=== PATIENT | male | born 1955 | race Caucasian/White ===

== ENCOUNTER 2016-07-29 14:17 | Observation (INO) | payer OTHER ==
[~2016-07-29] VITALS: Ht 175.3 cm; Wt 72.0 kg
[2016-07-29] VITALS (7 sets, daily range): BP systolic 146–161; BP diastolic 70–85; PULSE 64–74; RESP 16–20; TEMP 97.3–97.8; O2SAT 96–98
[2016-07-29] MEDS: SODIUM CHLORIDE 0.9% FLUSH 10 ML FLUSH IV FLUSH SCH (08:00)
[~2016-07-29 14:17] MED LIST: ALBU17I INH; ATEN1TAB75 PO; METH5SOL3 PO; XANA1TAB6 PO; ZITH500T PO
--- NOTE | 2016-07-29 14:42 | PD ---
Physical Exam Date Seen by Provider: July 29, 2016 Time Seen by Provider: 14:40 Narrative Pt states he has been having abdominal pain for 1 month. He was sent to GI and is scheduled for colonoscopy in 3 weeks. Pain is fluctuating and epigastric and cramping. Mild nausea, no vomiting. Pt denies any ETOH. VSS. Awaiting. Data Data Last Documented VS Vital Signs Date Time Temp Pulse Resp B/P Pulse Ox O2 Delivery O2 Flow Rate FiO2 07/29/16 14:19 97.3 64 20 146/82 98 Room Air [facility] Supervised Visit with MAKI: Angella Coleman July 29, 2016 14:42
[2016-07-29] MEDS ORDERED: CLON.5 PO (15:42)
[2016-07-29] MEDS ORDERED: ATEN50TA PO (15:42)
[2016-07-29] MEDS ORDERED: HYDR-2374 PO (15:42)
[2016-07-29] MEDS ORDERED: CITA20TA4 PO (15:42)
[2016-07-29] MEDS ORDERED: ONDANSETRON HCL 4 MG/2 ML VIAL IV PUSH ONE (16:00)
[2016-07-29] MEDS ORDERED: MORPHINE SULFATE 4 MG/ML INJ IV PUSH ONE (16:00)
[2016-07-29 16:17] LABS: AUTOMATED NEUTROPHIL # 4.2 TH/MM3 (1.8-7.7); BASOPHIL # 0.1 TH/MM3 (0-0.2); EOSINOPHIL # 0.3 TH/MM3 (0-0.4); EOSINOPHIL % 3.7 % (0.0-4.0); HEMATOCRIT 39.6 % (39.0-51.0); HEMO FLAGS DIFF FINAL; LYMPH % 28.9 % (9.0-44.0); LYMPHOCYTE # 2.1 TH/MM3 (1.0-4.8); MEAN CELL VOLUME 90.8 FL (80.0-100.0); MEAN CORPUSCULAR HEMOGLOBIN 31.5 PG (27.0-34.0); MEAN CORPUSCULAR HGB CONC 34.7 % (32.0-36.0); MONO % 8.4 % (0.0-8.0); PLATELET COUNT 237 TH/MM3 (150-450); RED BLOOD COUNT 4.36 MIL/MM3 (4.50-5.90); RED CELL DISTRIBUTION WIDTH 12.3 % (11.6-17.2); WHITE BLOOD COUNT 7.2 TH/MM3 (4.0-11.0)
[2016-07-29 16:19] LABS: BLOOD, URINE NEG (NEG); GLUCOSE,URINE NEG (NEG); KETONE, URINE NEG (NEG); NITRITE,URINE NEG (NEG); PH, URINE 6.5 (5.0-8.5); URINE COLOR LIGHT-YELLOW (YELLW/STRAW)
[2016-07-29 16:27] LABS: COMMENT (UR) CULT NOT INDICATED; CULTURE IF INDICATED CULT NOT INDICATED
[2016-07-29 16:28] LABS: INTERNATIONAL NORMALIZED RATIO 0.9 RATIO; PROTHROMBIN TIME - PATIENT 10.3 SEC (9.8-11.6)
[2016-07-29 16:38] LABS: ANION GAP 9 MEQ/L (5-15); AST (GOT) 16 U/L (15-37); BICARBONATE 30.2 MEQ/L (21.0-32.0); BLOOD UREA NITROGEN 11 MG/DL (7-18); CHLORIDE 97 MEQ/L (98-107); GLOMERULAR FILTRATION RATE 70 ML/MIN (>89); MAGNESIUM 2.1 MG/DL (1.5-2.5); POTASSIUM 3.7 MEQ/L (3.5-5.1); SODIUM (NA) 136 MEQ/L (136-145)
[2016-07-29 16:49] LABS: ALKALINE PHOSPHATASE 100 U/L (45-117); ALT (GPT) 19 U/L (12-78); TOTAL BILIRUBIN ADULT 0.2 MG/DL (0.2-1.0)
[2016-07-29 16:51] LABS: CREATINE KINASE 57 U/L (39-308)
--- NOTE | 2016-07-29 17:13 | PD ---
HPI Chief Complaint: Abdominal Pain Time Seen by Provider: 17:09 Travel History International Travel<30 days: No Contact w/Intl Traveler<30days: No Traveled to known affect area: No History of Present Illness HPI 61-year-old male that presents to the ED for evaluation of abdominal pain for about 1 month now. Per patient abdominal pain is diffuse. Per patient has a chronic history of smoking as well as hypertension. No diabetes. She states that he follow with his doctor and she sent him to a GI specialist wants to the colonoscopy. She is not scheduled to have the colonoscopy until 3 weeks from now. Per patient he came here because the pain is getting severe. Per patient he has a history of chronic back possible which she takes Lortab. Per patient his been having to take more of his medication to help with the belly pain is nothing else seems to be working. He denies any new nausea or vomiting. No bowel movement issues. He does state that he has no urinary issues. No fevers chills or sweats. Pain per patient comes and goes. Nothing seems to make it better or worse. He denies any surgeries to his abdomen. No allergies to medication. He states that occasionally he gets chest pains and shortness of breath but not today. Has not go back to his PCP as of yet. Patient did follow with GI. Pain per patient is 6 out of 10. PFSH Past Medical History Anxiety: Yes Heart Rhythm Problems: No Cardiac Catheterization: No Cardiovascular Problems: Yes High Cholesterol: No Congestive Heart Failure: No Diabetes: No Hypertension: Yes Musculoskeletal: Yes (chronic back pain) Myocardial Infarction: No Sleep Apnea: Yes (CPAP AT NIGHT) Past Surgical History Coronary Artery Bypass Graft: No Other Surgery: Yes (VASTECTOMY) Family History Family Myocardial Infarction: Yes Social History Alcohol Use: No Tobacco Use: Yes (03/22 PPD) Substance Use: No Allergies-Medications (Allergen,Severity, Reaction): Coded Allergies: No Known Allergies (Verified , 07/29/16) Reported Meds & Prescriptions Reported Meds & Active Scripts Active Bentyl (Dicyclomine HCl) 20 Mg Tab 20 Mg PO TID Reported Klonopin (Clonazepam) 0.5 Mg Tab 0.5 Mg PO QID Hydrocodone-Acetaminophen 10-300 Tab 1 Tab PO Q6H PRN Citalopram (Citalopram Hydrobromide) 20 Mg Tab 20 Mg PO DAILY Atenolol 50 Mg Tab 50 Mg PO DAILY Review of Systems Except as stated in HPI: all other systems reviewed are Neg Physical Exam Narrative GENERAL: SKIN: Warm and dry. HEAD: Atraumatic. Normocephalic. EYES: Pupils equal and round. No scleral icterus. No injection or drainage. ENT: No nasal bleeding or discharge. Mucous membranes pink and moist. Tongue is midline. No uvula deviation. NECK: Trachea midline. No JVD. CARDIOVASCULAR: Regular rate and rhythm. No murmurs, S3, S4. RESPIRATORY: No accessory muscle use. Clear to auscultation. Breath sounds equal bilaterally. GASTROINTESTINAL: Abdomen soft, non-tender with no guarding. Tender to palpation on the epigastric area, nondistended. Hepatic and splenic margins not palpable. MUSCULOSKELETAL: Extremities without clubbing, cyanosis, or edema. No obvious deformities. Full range of motion of the upper and lower extremities bilaterally. 2+ pulses bilaterally. NEUROLOGICAL: Awake and alert. No obvious cranial nerve deficits. Motor grossly within normal limits. Five out of 5 muscle strength in the arms and legs. Normal speech. PSYCHIATRIC: Appropriate mood and affect; insight and judgment normal. Data Data Last Documented VS Vital Signs Date Time Temp Pulse Resp B/P Pulse Ox O2 Delivery O2 Flow Rate FiO2 07/29/16 16:23 64 16 148/70 98 Room Air 07/29/16 14:19 97.3 Orders Electrocardiogram (07/29/16 15:40) Complete Blood Count With Diff (07/29/16 15:40) Comprehensive Metabolic Panel (07/29/16 15:40) Ckmb (Isoenzyme) Profile (07/29/16 15:40) Troponin I (07/29/16 15:40) Prothrombin Time / Inr (Pt) (07/29/16 15:40) Lipase (07/29/16 15:40) Urinalysis - C+S If Indicated (07/29/16 15:40) Magnesium (Mg) (07/29/16 15:40) Thyroid Stimulating Hormone (07/29/16 15:40) Ct Abd/Pel W Iv Contrast(Rout) (07/29/16 15:40) Iv Access Insert/Monitor (07/29/16 15:40) Ecg Monitoring (07/29/16 15:40) Chest, Single Ap (5/11/17 ) Morphine Inj (Morphine Inj) (07/29/16 16:00) Ondansetron Inj (Zofran Inj) (07/29/16 16:00) Iohexol 350 Inj (Omnipaque 350 Inj) (07/29/16 17:14) Labs Laboratory Tests Test 07/29/16 07/29/16 15:47 15:50 White Blood Count 7.2 TH/MM3 Red Blood Count 4.36 MIL/MM3 Hemoglobin 13.7 GM/DL Hematocrit 39.6 % Mean Corpuscular Volume 90.8 FL Mean Corpuscular Hemoglobin 31.5 PG Mean Corpuscular Hemoglobin 34.7 % Concent Red Cell Distribution Width 12.3 % Platelet Count 237 TH/MM3 Mean Platelet Volume 7.5 FL Neutrophils (%) (Auto) 58.0 % Lymphocytes (%) (Auto) 28.9 % Monocytes (%) (Auto) 8.4 % Eosinophils (%) (Auto) 3.7 % Basophils (%) (Auto) 1.0 % Neutrophils # (Auto) 4.2 TH/MM3 Lymphocytes # (Auto) 2.1 TH/MM3 Monocytes # (Auto) 0.6 TH/MM3 Eosinophils # (Auto) 0.3 TH/MM3 Basophils # (Auto) 0.1 TH/MM3 CBC Comment DIFF FINAL Differential Comment Prothrombin Time 10.3 SEC Prothromb Time International 0.9 RATIO Ratio Sodium Level 136 MEQ/L Potassium Level 3.7 MEQ/L Chloride Level 97 MEQ/L Carbon Dioxide Level 30.2 MEQ/L Anion Gap 9 MEQ/L Blood Urea Nitrogen 11 MG/DL Creatinine 1.07 MG/DL Estimat Glomerular Filtration 70 ML/MIN Rate Random Glucose 104 MG/DL Calcium Level 9.6 MG/DL Magnesium Level 2.1 MG/DL Total Bilirubin 0.2 MG/DL Aspartate Amino Transf 16 U/L (AST/SGOT) Alanine Aminotransferase 19 U/L (ALT/SGPT) Alkaline Phosphatase 100 U/L Total Creatine Kinase 57 U/L Troponin I LESS THAN 0.02 NG/ML Total Protein 8.2 GM/DL Albumin 3.8 GM/DL Lipase 135 U/L Thyroid Stimulating Hormone 1.330 uIU/ML 3rd Gen Urine Color LIGHT-YELLOW Urine Turbidity CLEAR Urine pH 6.5 Urine Specific [place] 1.005 Urine Protein NEG mg/dL Urine Glucose (UA) NEG mg/dL Urine Ketones NEG mg/dL Urine Occult Blood NEG Urine Nitrite NEG Urine Bilirubin NEG Urine Urobilinogen LESS THAN 2.0 MG/DL Urine Leukocyte Esterase NEG Microscopic Urinalysis Comment CULT NOT INDICATED MDM Medical Decision Making Medical Screen Exam Complete: Yes Emergency Medical Condition: Yes Medical Record Reviewed: Yes Interpretation(s) CBC & BMP Diagram 07/29/16 15:47 LFTs and lipase within normal limits. Urine negative. Coags within normal limits. EKG shows sinus rhythm with no sign of acute ischemia or arrhythmia read by me and attending. Troponin and CK-MB negative. Last Impressions Chest X-Ray 07/29/16 0000 Signed Impressions: Service Date/Time: , July 29, 2016 16:07 - CONCLUSION: Right lung scarring versus atelectasis. No evidence of consolidating airspace disease or significant congestion. Juan Samuels MD CT abdomen negative Differential Diagnosis Acute on chronic abdominal pain versus chronic abdominal pain versus pancreatitis versus diverticulitis versus mass versus ACS Narrative Course 61-year-old male to presents to the ED for evaluation of abdominal pain. Patient was properly examined and was found to have signs and symptoms of unclear etiology. Labs and imaging recommended. Patient is in agreement with this plan. Labs and imaging showed no sign of acute medical distress. Labs and imaging were essentially unremarkable. Patient was reassured. At this time this appears to be acute on chronic pain. No sign of acute medical distress. Patient states that she's had chest pains on and off for the past couple of weeks nothing recent. He is a smoker. This was discussed in my attending who agrees to a typical chest pain. Patient has no chest pain today. Troponin and EKG were normal here. My attending Dr. Bonilla evaluated the patient and does recommend admission to the chest pain center as he does continue to complain that he has this chest pressure on and off. Patient does have risk factors including family history, hypertension and smoking. My attending recommends admission to this chest pain center. On regards to Abdominal pain I do not believe this is related. Patient was given a prescription for Bentyl for this. Procedures EKG Prior to Arrival: No Diagnosis Primary Impression: Chest pain in adult Additional Impression: Abdominal pain Qualified Code: R10.84 - Generalized abdominal pain Admitting Information Admitting Physician Requests: Observation Scripts Dicyclomine (Bentyl)20 Mg Tab20 Mg PO TID #20 TAB Prov:Dilia Bonilla MD 07/29/16 Mayo Castillo July 29, 2016 17:13
[2016-07-29] MEDS ORDERED: IOHEXOL 350 MG/ML 10 ML VIAL (for RAD DIAG) IV ONE (17:14)
--- NOTE | 2016-07-29 17:29 | RADRPT ---
EXAM DATE/TIME: 07/29/2016 16:07 [facility] COMPARISON: No previous studies available for comparison. INDICATIONS : Upper abdominal pain MEDICAL HISTORY : None. SURGICAL HISTORY : None. ENCOUNTER: Initial ACUITY: 2 days PAIN SCORE: 6/10 LOCATION: Bilateral upper abdomen FINDINGS: A single view of the chest demonstrates the lungs to be symmetrically aerated without evidence of mas s, infiltrate or effusion. Small parenchymal bands are seen in the right lung.. The cardiomediastina l contours are unremarkable. Osseous structures are intact. CONCLUSION: Right lung scarring versus atelectasis. No evidence of consolidating airspace disease or significant congestion. Juan Samuels MD on July 29, 2016 at 17:24 Board Certified Radiologist. This report was verified electronically.
--- NOTE | 2016-07-29 17:34 | RADRPT ---
EXAM DATE/TIME: 07/29/2016 17:12 [facility] COMPARISON: No previous studies available for comparison. INDICATIONS : Epigastric pain and cramping past month. IV CONTRAST: 85 cc Omnipaque 350 (iohexol) IV ORAL CONTRAST: No oral contrast ingested. RADIATION DOSE: 5.56 CTDIvol (mGy) MEDICAL HISTORY : Hypertension. SURGICAL HISTORY : Vasectomy ENCOUNTER: Initial ACUITY: 1 month PAIN SCALE: 5/10 LOCATION: epigastric TECHNIQUE: Volumetric scanning of the abdomen and pelvis was performed. Using automated exposure control and ad justment of the mA and/or kV according to patient size, radiation dose was kept as low as reasonably achievable to obtain optimal diagnostic quality images. FINDINGS: There is moderate emphysema. No significant abnormality in the liver, spleen, adrenals, kidneys or pa ncreas. No calcified gallstones or biliary ductal dilatation. There is a diffuse mild ileus. No free fluid. No bowel obstruction. No bony abnormalities. CONCLUSION: Moderate emphysema. Ileus. No evidence for obstruction. Mild gastric distention. Cyrus Hatch MD on July 29, 2016 at 17:28 Board Certified Radiologist. This report was verified electronically.
[2016-07-29] MEDS ORDERED: BENT20TA PO (17:45)
--- NOTE | 2016-07-29 17:54 | EKG ---
Date Performed: 07/29/2016 Time Performed: 15:38:48 PTAGE: 61 years EKG: Sinus rhythm WITH SHORT CO INTERVAL POSSIBLE RIGHT VENTRICULAR CONDUCTION DELAY BORDERLINE ECG INTERPRETATION BAS ED ON A DEFAULT AGE OF 40 YEARS NO SIGNIFICANT CHANGE FROM PRIOR ELECTROCARDIOGRAM. PREVIOUS TRACING : 07/27/2010 10.50 DOCTOR: Simon Palacio Interpretating Date/Time 07/29/2016 17:52:51
[2016-07-29] MEDS ORDERED: ACETAMINOPHEN 500 MG CPLT PO PRN (18:00)
[2016-07-29] MEDS ORDERED: SODIUM CHLORIDE 0.9% FLUSH 10 ML FLUSH IV FLUSH PRN (18:00)
[2016-07-29] MEDS ORDERED: ONDANSETRON HCL 4 MG/2 ML VIAL IV PRN (18:00)
[2016-07-29] MEDS ORDERED: ACETAMINOPHEN/HYDROcodone 325 MG/7.5 MG TAB PO PRN (18:00)
[2016-07-29] MEDS ORDERED: MORPHINE SULFATE 4 MG/ML INJ IV PRN (18:00)
[2016-07-29] MEDS ORDERED: NITROGLYCERIN 0.4 MG SL 25 TABS/BTL SL PRN (18:30)
--- NOTE | 2016-07-29 18:47 | HHI.HP ---
HPI Primary Care Physician Yon Wyatt DO Chief Complaint Abdominal pain History of Present Illness 61-year-old male with known hypertension, anxiety, sleep apnea, and chronic back pain presents to the emergency room for further evaluation of abdominal pain. Onset of abdominal pain 6 weeks ago. He is scheduled for a colonoscopy in 3 weeks. He has followed with his PCP and states they have "done lots of tests and can't find anything wrong." Location epigastric and generalized stabbing occasionally accompanied with cramping. No change in stools. Seen and evaluated by ER physician and mentioned intermittent chest pain over the past few weeks. In fact, patient states he's had intermittent chest pain most of his life and he relates to anxiety and relates to "stress." In regards to his chest pain he denies chest pain, but endorses left-sided neck radiating to left shoulder and left arm. Denies any chest pain Severity 5/10. No known precipitating or relieving factors. Duration is generally 30 minutes and occurs intermittently for "years" with no known precipitating factors. No associated symptoms. Endorses cardiac catheterization 4-5 years ago with 20% blockage and no need for intervention. Review of Systems General: No fatigue,weakness, fever, chills, or recent illness. Has been in his general state of health other than abdominal pain for 6 weeks. HEENT: No BLANDON, no dysphasia CV: As stated above. Currently he is chest pain-free. No palpitations ordizziness RESP: No SOB, cough, wheeze, or recent URI. Endorses history of sleep apnea. GI: No nausea, vomiting, bowel changes, diarrhea, constipation, pain, distention , melena, blood in the stool. No unintentional weight gain or weight loss : No dysuria, urgency, frequency EXT: No lower leg edema, no paraesthesias MS: Chronic back pain. No change in ROM NEURO: No change in memory, dizziness, difficulty with balance, LOC, motor/ sensory deficits PSYCH: History of anxiety which is currently stable on medications. No depression. SKIN: No rashes, no concerning lesions Past Family Social History Allergies: Coded Allergies: No Known Allergies (Verified , 07/29/16) Past Medical History Hypertension, chronic pelvic pain, anxiety, sleep apnea Past Surgical History None Reported Medications Reported Klonopin (Clonazepam) 0.5 Mg Tab 0.5 Mg PO QID Hydrocodone-Acetaminophen 10-300 Tab 1 Tab PO Q6H PRN Citalopram (Citalopram Hydrobromide) 20 Mg Tab 20 Mg PO DAILY Atenolol 50 Mg Tab 50 Mg PO DAILY Active Ordered Medications Current Medications Medications (Trade) Dose Ordered Sig/Cuca Route Start Time Stop Time Status Last Admin (Tylenol) 500 mg Q4H PRN PO 07/29/16 18:00 (Echo 7.5-325 Mg) 1 tab Q4H PRN PO 07/29/16 18:00 (Morphine Inj) 2 mg Q4H PRN IV 07/29/16 18:00 (Zofran Inj) 4 mg Q6H PRN IV 07/29/16 18:00 (Nitrostat Sl) 0.4 mg Q5M PRN SL 07/29/16 18:30 (Aspirin) 325 mg DAILY PO 07/30/16 09:00 Family History Noncontributory for early onset cardiovascular disease. Father had open heart surgery at age 60. Mother still alive and well at age 92, has total of 4 cardiac stents placed beginning in her 70s. Social History No known diabetes or hyperlipidemia. Known hypertension. Smoked most of his adult life currently smoking 1 pack daily. Denies any alcohol or illegal drug use. Endorses sedentary lifestyle due to chronic back pain. Past cardiac testing No recent stress testing. Reports cardiac catheterization 4-5 years after [facility] and was told he had 20% blockage and scar tissue. No intervention. Believes he may have had cardiac stress test at that time as well. Does not follow with mammalogist. Physical Exam Vital Signs Vital Signs Date Time Temp Pulse Resp B/P Pulse Ox O2 Delivery O2 Flow Rate FiO2 07/29/16 18:27 97 21 07/29/16 17:45 65 18 146/85 98 Room Air 07/29/16 16:23 64 16 148/70 98 Room Air 07/29/16 15:37 65 18 150/79 98 Room Air 07/29/16 15:37 18 07/29/16 14:19 97.3 64 20 146/82 98 Room Air Physical Exam GENERAL: Alert WN, WD, NAD, pleasant, male HEAD: NC, AT EYES: Sclera clear, conjunctiva without injection, pupils equal and round NECK: Supple, no masses, trachea midline CV: RRR, without murmur, rub, gallop, no JVD, S1-S2 no S3-S4. RESP: Prolonged expiratory phase, with expiratory wheeze. No crackles, rhonchi. Symmetrical chest rise, nonlabored, able to speak in full sentences ABD: Soft, NT, ND, no masses, positive bowel tones EXT: Pulses +24, no dependent edema MS: Normal tone 4 extremities, nontender, no obvious deformities, full range of motion NEURO: CN II through CN XII grossly intact, motor strength 5/5, gait WNL PSYCH: A+O 3, pleasant affect, appropriate speech, appropriate mood and affect , insight and judgment SKIN: Normal turgor, normal texture, no lesions, no rashes, brisk cap refill Laboratory Laboratory Tests Test 07/29/16 07/29/16 15:47 15:50 White Blood Count 7.2 Red Blood Count 4.36 Hemoglobin 13.7 Hematocrit 39.6 Mean Corpuscular Volume 90.8 Mean Corpuscular Hemoglobin 31.5 Mean Corpuscular Hemoglobin 34.7 Concent Red Cell Distribution Width 12.3 Platelet Count 237 Mean Platelet Volume 7.5 Neutrophils (%) (Auto) 58.0 Lymphocytes (%) (Auto) 28.9 Monocytes (%) (Auto) 8.4 Eosinophils (%) (Auto) 3.7 Basophils (%) (Auto) 1.0 Neutrophils # (Auto) 4.2 Lymphocytes # (Auto) 2.1 Monocytes # (Auto) 0.6 Eosinophils # (Auto) 0.3 Basophils # (Auto) 0.1 CBC Comment DIFF FINAL Differential Comment Prothrombin Time 10.3 Prothromb Time International 0.9 Ratio Sodium Level 136 Potassium Level 3.7 Chloride Level 97 Carbon Dioxide Level 30.2 Anion Gap 9 Blood Urea Nitrogen 11 Creatinine 1.07 Estimat Glomerular Filtration 70 Rate Random Glucose 104 Calcium Level 9.6 Magnesium Level 2.1 Total Bilirubin 0.2 Aspartate Amino Transf 16 (AST/SGOT) Alanine Aminotransferase 19 (ALT/SGPT) Alkaline Phosphatase 100 Total Creatine Kinase 57 Troponin I LESS THAN 0.02 Total Protein 8.2 Albumin 3.8 Lipase 135 Thyroid Stimulating Hormone 1.330 3rd Gen Urine Color LIGHT-YELLOW Urine Turbidity CLEAR Urine pH 6.5 Urine Specific [place] 1.005 Urine Protein NEG Urine Glucose (UA) NEG Urine Ketones NEG Urine Occult Blood NEG Urine Nitrite NEG Urine Bilirubin NEG Urine Urobilinogen LESS THAN 2.0 Urine Leukocyte Esterase NEG Microscopic Urinalysis Comment CULT NOT INDICATED Result Diagram: 07/29/16 1547 07/29/16 1547 Imaging Last Impressions Abdomen/Pelvis CT 07/29/16 1540 Signed Impressions: Service Date/Time: July 17:12 - CONCLUSION: Moderate emphysema. Ileus. No evidence for obstruction. Mild gastric distention. Cyrus Hatch MD Chest X-Ray 07/29/16 0000 Signed Impressions: Service Date/Time: , July 29, 2016 16:07 - CONCLUSION: Right lung scarring versus atelectasis. No evidence of consolidating airspace disease or significant congestion. Juan Samuels MD Course EKG Normal sinus rhythm with no ST or T-segment changes Assessment and Plan Assessment and Plan #1 Chest painadmitted to chest pain center. Ruled out with 3 sets of cardiac enzymes, EKGs and monitor overnight. Will be evaluated by Dr. Simi Lenz a.m. Discussed the likelihood further cardiac stress testing after evaluation by cardiology and results of pending lab and EKGs. Patient agreeable to plan of care. #2 Abdominal painno acute abdominal process identified in ER. Discussed with patient to follow-up with GI accordingly. #3 Chronic paincontinue hydrocodone/acetaminophen 10/300mg every 6 hours when necessary as needed #4 Hypertensioncontinue atenolol #5 Anxiety-continue Klonopin and citalopram #6 Sleep apneamay use home mask and machine, otherwise respiratory therapy to provide machine. #7 CAD-discussed in length benefits of daily 81-162 mg aspirin and statin therapy with known coronary artery disease, encouraged to speak with primary care provider regarding both therapies. Shivani Mejia [facility] July 29, 2016 18:47
[2016-07-29] MEDS ORDERED: ACETAMINOPHEN/HYDROcodone 325 MG/10 MG TAB PO PRN (19:00)
[2016-07-29] MEDS: clonazePAM 0.5 MG TAB PO SCH (19:30)
[2016-07-29 19:37] LABS: CREATINE KINASE 56 U/L (39-308)
--- NOTE | 2016-07-29 21:21 | EKG ---
Date Performed: 07/29/2016 Time Performed: 18:47:46 PTAGE: 61 years EKG: Sinus rhythm WITH SHORT GA INTERVAL INCOMPLETE RIGHT BUNDLE BRANCH BLOCK BORDERLINE ECG NO SIGNIFICANT CHANGE FRO M PRIOR ELECTROCARDIOGRAM. PREVIOUS TRACING : 07/29/2016 15.38 DOCTOR: Simon Palacio Interpretating Date/Time 07/29/2016 21:20:12
[2016-07-29 23:10] LABS: CREATINE KINASE 51 U/L (39-308)
[2016-07-30 00:33] VITALS: BP 134/78; PULSE 70; RESP 20; TEMP 97.9; O2SAT 96
[2016-07-30 04:00] VITALS: BP 121/69; PULSE 65; RESP 20; TEMP 97.7; O2SAT 98
[2016-07-30 07:19] VITALS: PULSE 79
[2016-07-30] MEDS: clonazePAM 0.5 MG TAB PO SCH ×2 (07:59→13:00)
[2016-07-30 08:10] VITALS: O2SAT 96
[2016-07-30 08:13] VITALS: BP 132/70; PULSE 67; RESP 23; TEMP 98.4; O2SAT 97
[2016-07-30] MEDS: SODIUM CHLORIDE 0.9% FLUSH 10 ML FLUSH IV FLUSH SCH (09:00)
[2016-07-30] MEDS ORDERED: ATENOLOL 50 MG TAB PO SCH (09:00)
[2016-07-30] MEDS ORDERED: CITALOPRAM HYDROBROMIDE 20 MG TAB PO SCH (09:00)
[2016-07-30] MEDS ORDERED: ASPIRIN 325 MG TAB PO SCH (09:00)
[2016-07-30 09:10] VITALS: RESP 20
--- NOTE | 2016-07-30 09:25 | EKG ---
Date Performed: 07/29/2016 Time Performed: 22:13:47 PTAGE: 61 years EKG: Sinus rhythm INCOMPLETE RIGHT BUNDLE BRANCH BLOCK BORDERLINE ECG Since PREVIOUS TRACING , no significant change noted PREVIOUS TRACIN07/29/2016 18.47 DOCTOR: Simi Lenz Interpretating Date/Time 07/30/2016 09:23:24
[2016-07-30] MEDS ORDERED: REGADENOSON INJ 0.4 MG/5 ML SYR ONE (11:25)
--- NOTE | 2016-07-30 12:51 | RADRPT ---
EXAM DATE/TIME: 07/30/2016 10:38 [facility] COMPARISON: No previous studies available for comparison. INDICATIONS : Left sided chest pain for one day. Angina. DOSE: 26.3 mCi Tc99m Myoview at stress. 8.7 mCi Tc99m Myoview at rest. 0.4 mg Lexiscan STRESS SYMPTOMS: Chest pain and headache. EJECTION FRACTION: 63% MEDICAL HISTORY : Hypertension. SURGICAL HISTORY : None. ENCOUNTER: Initial ACUITY: 1 day PAIN SCALE: 5/10 LOCATION: Left chest TECHNIQUE: The patient underwent pharmacologic stress with infusion of prescribed dose. Continuous ECG tracing was monitored during stress. Gated SPECT imaging was performed after stress and conventional SPECT i maging was performed at rest. The examination was performed on a SPECT/CT scanner, both attenuation and non-corrected datasets were reviewed. FINDINGS: The best perfused myocardium at stress is the anterior septal wall. Moderate gut activity does obscur e the inferior wall. There is very minimal redistribution in the mid anterior wall involving small segment extending towar ds the base. There is normal wall motion across the anterior wall CONCLUSION: Borderline significant stress induced redistribution suggesting ischemia in the anterior wall.. RISK CATEGORY: Low (<1% Annual Mortality Rate) Yon Forrester MD FACR on July 30, 2016 at 12:47 Board Certified Radiologist. This report was verified electronically.
[2016-07-30] MEDS ORDERED: ASPI81CH CHEW (13:21)
--- NOTE | 2016-07-30 13:22 | HHI.DCPOC ---
Discharge Care Plan Diagnosis: (1) Atypical chest pain (2) Abdominal pain (3) Tobacco abuse Goals to Promote Your Health * To prevent worsening of your condition and complications * To maintain your health at the optimal level Directions to Meet Your Goals Take your medications as prescribed Follow your dietary instruction Follow activity as directed Keep your appointments as scheduled Take your immunizations and boosters as scheduled If your symptoms worsen call your PCP, if no PCP go to Urgent Care Center or Emergency Room Smoking is Dangerous to Your Health. Avoid second hand smoke Call the 24-hour hour crisis hotline for domestic abuse at Shivani Mejia July 30, 2016 13:22
--- NOTE | 2016-07-30 15:01 | TR ---
Date Performed: 07/30/2016 Time Performed: 11:30:55 DOCTOR: Simi Lenz DRUG LIST: CLINICAL HISTORY: REASON FOR TEST: CHEST PAIN REASON FOR ENDING: OBSERVATION: CONCLUSION: Lexiscan stress test was performed under standard four minute protocol. [place]ion[place] e was injected one minute prior to ending the test. No electrocardiographic abormalities were present to suggest ischemia. Nuclear imaging and interpretation are pending. COMMENTS:
== END 2016-07-30 14:58 | disposition home or self-care (01) ==
LOC: NEPE 14:17 → NEDA 17:51 → NEPGCP 18:55
PROVIDERS: ADMIT Internal Medicine Interventional Cardiology; ATTEND Internal Medicine Interventional Cardiology
DX: R10.84 Generalized abdominal pain (principal); R07.89 Other chest pain; I25.10 Atherosclerotic heart disease of native coronary artery without angina pectoris; G89.29 Other chronic pain; M54.9 Dorsalgia, unspecified; R10.2 Pelvic and perineal pain; G47.30 Sleep apnea, unspecified; I10 Essential (primary) hypertension; F41.9 Anxiety disorder, unspecified; F17.200 Nicotine dependence, unspecified, uncomplicated; Z99.81 Dependence on supplemental oxygen; Z82.49 Family history of ischemic heart disease and other diseases of the circulatory system
CPT/HCPCS: 71010; 74177; 78452; 80053; 81001; 82550; 83690; 83735; 84443; 84484; 85025; 85610; 93005; 93017; 96374; 96375; 99285; A9502; G0378; J2270; J2405; J2785; Q9967